=== PATIENT | male | born 1980 | race Caucasian/White ===

== ENCOUNTER 2025-02-20 10:23 | Emergency (ER) | payer OTHER ==
[~2025-02-20] VITALS: Ht 185.4 cm; Wt 92.0 kg
[2025-02-20 10:26] VITALS: O2SAT 99
[2025-02-20 11:01] LABS: BASOPHILS % 0.7 % (0.0-2.0); EOSINOPHILS % 1.2 % (0.0-5.0); HEMATOCRIT. 42.3 % (42.0-52.0); HEMOGLOBIN. 14.4 g/dL (14.0-18.0); LYMPHOCYTES % 21.1 % (20.0-50.0); MEAN PLATELET VOLUME 7.9 fl (7.4-10.4); MONOCYTES % 8.4 % (2.0-8.0); NEUTROPHILS % 68.6 % (40.0-76.0); PLATELET 243 x1000/uL (130-400); RED BLOOD CELL COUNT 4.88 mill/uL (4.7-6.1); RED CELL DISTRIBUTION WIDTH 14.0 % (11.6-14.6)
[2025-02-20] MEDS: MORPHINE SULFATE 4 MG/ML INJ (FOR IV/IM USE) IV ONE (11:05)
[2025-02-20 11:16] LABS: CREATININE 1.0 mg/dL (0.6-1.3); UREA NITROGEN BLOOD 18 mg/dL (9-23)
[2025-02-20 11:17] LABS: TROPONIN I HIGH SENSITIVITY < 4 ng/L (3.0-53)
[2025-02-20 11:18] LABS: ASPARTATE AMINOTRANSFERASE 28 IU/L (<34); BILIRUBIN DIRECT < 0.1 mg/dL (<=3.0)
[2025-02-20 11:19] LABS: BILIRUBIN TOTAL 0.4 mg/dL (0.1-1.0); PROTEIN TOTAL 6.9 g/dL (6.0-8.3)
[2025-02-20] MEDS ORDERED: KETO10TA2 MT (13:07)
[2025-02-20 13:16] VITALS: BP 155/72; PULSE 65; RESP 13; TEMP 36.9; O2SAT 99
[2025-02-20] MEDS ORDERED: IOHEXOL-300 100 ML BOTTLE ONE (13:43)
== END 2025-02-20 13:18 | disposition home or self-care (01) ==
LOC: ER 10:23 → CMPBEDREQ 13:42
DX: M25.511 Pain in right shoulder (principal); M25.512 Pain in left shoulder; R07.89 Other chest pain; M54.2 Cervicalgia; M54.9 Dorsalgia, unspecified; F10.90 Alcohol use, unspecified, uncomplicated; V03.10XA Pedestrian on foot injured in collision with car, pick-up truck or van in traffic accident, initial encounter; Y93.89 Activity, other specified; Y92.89 Other specified places as the place of occurrence of the external cause; Y99.8 Other external cause status; Y90.9 Presence of alcohol in blood, level not specified
CPT/HCPCS: 99291; 71260; 96374; 71045; 80076; 80048; 82550; 83690; 85025; 84484; 36415; 73030; 72125; 74177; 93005; Q9967; J2270